=== PATIENT | male | born 1960 | race Two or more races ===

== ENCOUNTER → 2017-03-25 | Outpatient (CLI) | payer OTHER, MEDICAID | LOC: BHFA 15:30 | PROVIDERS: ATTEND Internal Medicine Cardiovascular Disease | DX: I48.91 Unspecified atrial fibrillation (principal) ==

== ENCOUNTER → 2017-04-09 | Outpatient (CLI) | payer OTHER, MEDICAID | LOC: BHFA 09:00 | PROVIDERS: ATTEND Internal Medicine Cardiovascular Disease | DX: I48.91 Unspecified atrial fibrillation (principal) | CPT/HCPCS: 78452; 93017; A9500; J2785 ==

== ENCOUNTER → 2017-05-27 | Outpatient (CLI) | payer OTHER, MEDICAID | LOC: BHFA 09:00 | PROVIDERS: ATTEND Internal Medicine Cardiovascular Disease | DX: I48.91 Unspecified atrial fibrillation (principal) ==